=== PATIENT | female | born 1955 | race Caucasian/White ===

== ENCOUNTER 2018-03-02 07:32 | Inpatient (IN) | payer OTHER ==
[2018-02-28 15:32] LABS: BASOPHILS # (AUTO) 0.06 x10^3/uL (0-0.1); BASOPHILS % (AUTO) 1 % (0-1); EOSINOPHILS # (AUTO) 0.06 x10^3/uL (0-0.4); EOSINOPHILS % (AUTO) 1 % (1-7); LYMPHOCYTES # (AUTO) 3.03 x10^3/uL (1-3.4); LYMPHOCYTES % (AUTO) 32 % (22-44); MD NO; MEAN CORPUSCULAR HEMOGLOBIN 32.5 pg (27.0-34.8); MEAN CORPUSCULAR HGB CONC 34.5 g/dL (32.4-35.8); MEAN CORPUSCULAR VOLUME 94.3 fL (80-100); MEAN PLATELET VOLUME 10.4 fL (7.4-10.4); MONOCYTES # (AUTO) 0.73 x10^3/uL (0.2-0.8); MONOCYTES % (AUTO) 8 % (2-9); NEUTROPHILS # (AUTO) 5.49 x10^3/uL (1.8-6.8); NEUTROPHILS % (AUTO) 59 % (42-75); PLATELET COUNT 270 x10^3/uL (130-400); RED CELL DISTRIBUTION WIDTH 13.2 % (9.6-15.2)
[2018-02-28 15:42] LABS: ANION GAP 7 mmol/L (5-15); CALCIUM 9.1 mg/dL (8.5-10.1); CHLORIDE 106 mmol/L (98-107)
[2018-02-28 15:56] LABS: % IRON SATURATION 14 % (20-55); ALANINE AMINOTRANSFERASE 58 U/L (12-78); ALKALINE PHOSPHATASE 70 U/L (45-117); BILIRUBIN,TOTAL 0.5 mg/dL (0.2-1.0); CHOL/HDL RATIO 3.6; CHOLESTEROL, TOTAL 157 mg/dL (140-239); CREATININE 0.78 mg/dL (0.55-1.02); HDL CHOL % 28 % (28-40); HDL CHOLESTEROL (DIRECT) 44 mg/dL (40-60); IRON LEVEL 52 mcg/dL (50-170); LDL CHOLESTEROL,CALCULATED 90 mg/dL (54-169); TOTAL IRON BINDING CAPACITY 375 mcg/dL (250-450); TOTAL PROTEIN 7.7 g/dL (6.4-8.2); TRANSFERRIN 290 mg/dL (200-360); TRIGLYCERIDES 116 mg/dL (50-200); VLDL CHOLESTEROL 23 mg/dL (0-25)
[2018-02-28 15:59] LABS: FOLATE LEVEL > 20.0 ng/mL (3.1-17.5)
[~2018-03-02] VITALS: Ht 172.7 cm; Wt 136.2 kg
[~2018-03-02 07:32] MED LIST: AMLO-150 PO; ANAS1TAB PO; ATOR10TA9 PO; BUPIVACAINE/PF-EPI 0.5% 1:200K ONE; HYDR12.517 PO; LOSA100T7 PO; SERT50TA PO
[2018-03-02 08:22] VITALS: BP 132/81
[2018-03-02] MEDS ORDERED: LACTATED RINGERS 1,000 ML IV SCH (08:27)
[2018-03-02] MEDS ORDERED: FENTANYL PF 250 MCG/5ML ONE (09:11)
[2018-03-02] MEDS ORDERED: MIDAZOLAM 1 MG/ML, 2ML ONE (09:11)
[2018-03-02] MEDS ORDERED: EPHEDRINE 50 MG/ML, 1ML ONE (09:53)
[2018-03-02] MEDS ORDERED: OXYcodone 5 MG/5 ML ORAL.SOL UDC PO PRN (10:00)
[2018-03-02] MEDS ORDERED: ONDANSETRON ODT 8 MG PO PRN (10:00)
[2018-03-02] MEDS ORDERED: ONDANSETRON 2MG/ML, 2ML IV PRN (10:00)
[2018-03-02] MEDS ORDERED: LORazepam 2 MG/ML, 1ML IVPush PRN (10:00)
[2018-03-02] MEDS ORDERED: HYDROmorphone 2 MG/ML, 1ML IVPush PRN (10:00)
[2018-03-02] MEDS ORDERED: MORPHINE SULFATE 4 MG/ML, 1ML IVPush PRN (10:00)
[2018-03-02] MEDS ORDERED: hydrALAzine 20 MG/ML, 1ML IV PRN (10:00)
[2018-03-02] MEDS ORDERED: DIAZEPAM 5 MG/ML, 2ML IVPush PRN (10:00)
[2018-03-02] MEDS ORDERED: MEPERIDINE/PF 25MG/0.5ML IVPush PRN (10:00)
[2018-03-02] MEDS ORDERED: LABETALOL 5MG/ML, 20ML IV PRN (10:00)
[2018-03-02] MEDS ORDERED: ACETAMINOPHEN 325 MG TABLET PO PRN (10:00)
[2018-03-02] MEDS ORDERED: PROPOFOL 10 MG/ML, 20ML ONE (10:13)
[2018-03-02] MEDS ORDERED: ROCURONIUM 10MG/ML,5ML ONE (10:13)
[2018-03-02] MEDS ORDERED: GLYCOPYRROLATE 0.2MG/1ML, 5ML ONE (10:13)
[2018-03-02] MEDS ORDERED: SUCCINYLCHOLINE 20 MG/ML, 10ML ONE (10:13)
[2018-03-02] MEDS ORDERED: NEOSTIGMINE 1 MG/ML, 10ML ONE (10:13)
[2018-03-02] MEDS ORDERED: ONDANSETRON 2MG/ML, 2ML ONE (10:13)
[2018-03-02] MEDS ORDERED: CEFAZOLIN 1,000 MG ONE (10:13)
[2018-03-02] MEDS ORDERED: DEXAMETHASONE 4 MG/ML, 1ML ONE (10:13)
[2018-03-02] MEDS ORDERED: FENTANYL PF 100 MCG/2ML ONE (11:23)
[2018-03-02] MEDS: FENTANYL PF 100 MCG/2ML IV PRN ×2 (11:27→11:50)
[2018-03-02] MEDS ORDERED: ACETAMINOPHEN 1,000 MG/100 ML IV IVPB SCH (11:30)
[2018-03-02] MEDS ORDERED: ACETAMINOPHEN 1,000 MG/100 ML IV IVPB ONE (11:30)
[2018-03-02] MEDS ORDERED: ACETAMINOPHEN 100 ML IVPB ONE (11:30)
[2018-03-02] MEDS ORDERED: morphine SULFATE 10 MG/ML, 1ML IVPush PRN (11:30)
[2018-03-02] MEDS ORDERED: hydrALAzine 20 MG/ML, 1ML IVPush PRN (11:30)
[2018-03-02] MEDS ORDERED: PROMETHAZINE 25 MG/ML, 1ML IM PRN (11:30)
[2018-03-02] MEDS ORDERED: DIPHENHYDRAMINE 50 MG/ML, 1ML IV PRN (11:30)
[2018-03-02] MEDS ORDERED: PHENOL THROAT SPRAY BOTTLE MM PRN (11:30)
[2018-03-02] MEDS ORDERED: PROMETHAZINE 12.5 MG SUPP PR PRN (11:30)
[2018-03-02] MEDS ORDERED: ONDANSETRON 2MG/ML, 2ML IVPush PRN (11:30)
[2018-03-02] MEDS ORDERED: LORazepam 2 MG/ML, 1ML IV PRN (11:30)
[2018-03-02] MEDS ORDERED: LABETALOL 20 MG/4 ML ONE (11:45)
[2018-03-02] MEDS ORDERED: HYDROmorphone 2 MG/ML, 1ML ONE (12:05)
[2018-03-02] MEDS: FAMOTIDINE 20 MG/2 ML IVPush SCH (13:39)
[2018-03-02 13:57] VITALS: BP 128/80
[2018-03-02] MEDS: LACTATED RINGERS 1,000 ML IV SCH ×2 (16:52→23:46)
[2018-03-02] MEDS: ACETAMINOPHEN 1,000 MG/100 ML IV IVPB SCH ×2 (17:48→23:46)
[2018-03-02] MEDS: HYDROcodone/APAP 7.5-325MG/15ML UDC PO PRN ×2 (20:00→23:44)
[2018-03-02 20:04] VITALS: BP 153/82
[2018-03-03] MEDS: FAMOTIDINE 20 MG/2 ML IVPush SCH ×2 (00:01→08:19)
[2018-03-03 00:08] VITALS: BP 160/93
[2018-03-03] MEDS: LACTATED RINGERS 1,000 ML IV SCH ×2 (00:12→06:28)
[2018-03-03 00:15] VITALS: BP 130/80
[2018-03-03 03:48] VITALS: BP 126/72
[2018-03-03 05:39] LABS: BASOPHILS # (AUTO) 0.03 x10^3/uL (0-0.1); BASOPHILS % (AUTO) 0 % (0-1); EOSINOPHILS % (AUTO) 0 % (1-7); LYMPHOCYTES # (AUTO) 1.71 x10^3/uL (1-3.4); LYMPHOCYTES % (AUTO) 16 % (22-44); MD NO; MEAN CORPUSCULAR HEMOGLOBIN 32.7 pg (27.0-34.8); MEAN CORPUSCULAR VOLUME 96.1 fL (80-100); MEAN PLATELET VOLUME 10.6 fL (7.4-10.4); MONOCYTES % (AUTO) 9 % (2-9); NEUTROPHILS # (AUTO) 8.22 x10^3/uL (1.8-6.8); NEUTROPHILS % (AUTO) 75 % (42-75); PLATELET COUNT 202 x10^3/uL (130-400); RED BLOOD COUNT 3.64 x10^6/uL (3.82-5.3)
[2018-03-03 05:43] LABS: ALBUMIN 2.6 g/dL (3.4-5.0); ANION GAP 12 mmol/L (5-15); CALCIUM 8.3 mg/dL (8.5-10.1); CHLORIDE 106 mmol/L (98-107)
[2018-03-03 05:44] LABS: CREATININE 0.41 mg/dL (0.55-1.02)
[2018-03-03] MEDS: ACETAMINOPHEN 1,000 MG/100 ML IV IVPB SCH (05:45)
[2018-03-03] MEDS: HYDROcodone/APAP 7.5-325MG/15ML UDC PO PRN ×2 (05:45→11:58)
[2018-03-03 07:32] VITALS: BP 136/71
[2018-03-03] MEDS ORDERED: AMLODIPINE 5 MG TABLET PO SCH (09:00)
[2018-03-03] MEDS ORDERED: LOSARTAN 50MG TABLET PO SCH (09:00)
[2018-03-03] MEDS ORDERED: ANASTROZOLE 1 MG TABLET PO SCH (09:00)
== END 2018-03-03 13:19 | disposition home or self-care (01) | DRG 621 ==
LOC: ORIP 07:32 → 4NOR 12:27 → DCLOUNGE 03-03 13:07
PROVIDERS: ADMIT Thoracic Surgery (Cardiothoracic Vascular Surgery); ATTEND Thoracic Surgery (Cardiothoracic Vascular Surgery)
PROC: 0DB64Z3 Excision of Stomach, Percutaneous Endoscopic Approach, Vertical (ICD-10-PCS; principal; 2018-03-02 09:30)
DX: E66.01 Morbid (severe) obesity due to excess calories (principal); E78.5 Hyperlipidemia, unspecified; I10 Essential (primary) hypertension; F32.9 Major depressive disorder, single episode, unspecified; M19.90 Unspecified osteoarthritis, unspecified site; Z88.0 Allergy status to penicillin; Z88.1 Allergy status to other antibiotic agents; Z88.8 Allergy status to other drugs, medicaments and biological substances; Z85.3 Personal history of malignant neoplasm of breast; Z68.42 Body mass index [BMI] 45.0-49.9, adult; Z90.49 Acquired absence of other specified parts of digestive tract; Z90.10 Acquired absence of unspecified breast and nipple; Z92.21 Personal history of antineoplastic chemotherapy
CPT/HCPCS: 36415; J3490; 71046; 80048; 80053; 80061; 82040; 82306; 82728; 82746; 83540; 83550; 83970; 84134; 84425; 84466; 85025; 93005; G0378; J0131; J0690; J1100; J1170; J2250; J2405; J2704; J2710; J3010; J0330; J0360; J7120